=== PATIENT | female | born 1960 | race Caucasian/White ===

== ENCOUNTER 2020-06-28 10:58 | Emergency (ER) | payer MEDICAID ==
[~2020-06-28] VITALS: Ht 177.8 cm; Wt 118.0 kg
[2020-06-28] MEDS ORDERED: ONDANSETRON HCL 4MG/2ML INJ IV STA (11:20)
[2020-06-28] MEDS ORDERED: MAGNESIUM/ALUMINUM HYDROXIDE/SIMETHICONE 30ML UDC PO ONE (11:30)
[2020-06-28] MEDS ORDERED: FAMOTIDINE 20MG/2ML VIAL IV ONE (11:30)
[2020-06-28] MEDS ORDERED: DIATR MEGLU/DIATRIZOATE SOLN 30ML ONE (11:40)
[2020-06-28 11:52] LABS: BASOPHILS % 0.5 % (0.0-2.0); EOSINOPHILS % 1.7 % (0.0-5.0); HEMATOCRIT. 38.7 % (36.0-48.0); LYMPHOCYTES % 13.3 % (20.0-50.0); MEAN CORPUSCULAR HEMOGLOBIN 29.3 pg (28.0-32.0); MEAN CORPUSCULAR VOLUME 87.2 fL (81.0-99.0); MEAN PLATELET VOLUME 8.9 fl (7.4-10.4); NEUTROPHILS % 77.5 % (40.0-76.0); PLATELET 160 x1000/uL (130-400); RED BLOOD CELL COUNT 4.44 mill/uL (4.2-5.4); RED CELL DISTRIBUTION WIDTH 14.5 % (11.6-14.6)
[2020-06-28 11:58] LABS: CHLORIDE 109 mEq/L (98-107)
[2020-06-28 12:00] LABS: PROTHROMBIN TIME 10.5 sec (9.6-11.0)
[2020-06-28 13:10] LABS: CLARITY URINE CLEAR (CLEAR); COLOR URINE YELLOW (YELLOW); KETONES URINE NEGATIVE (NEGATIVE); LEUKOCYTE ESTERASE URINE 1+ (NEGATIVE); NITRITE URINE NEGATIVE (NEGATIVE); OCCULT BLOOD URINE NEGATIVE (NEGATIVE); PH URINE 7.5 (4.5-8.0); PROTEIN URINE NEGATIVE (NEGATIVE); SPECIFIC GRAVITY URINE 1.018 (1.005-1.030)
[2020-06-28] MEDS ORDERED: DIPHENHYDRAMINE 50MG/ML VIAL IV ONE (16:15)
[2020-06-28] MEDS ORDERED: METOCLOPRAMIDE HCL 10MG/2ML VIAL IV ONE (16:15)
[2020-06-28 17:25] VITALS: BP 138/84
== END 2020-06-28 18:15 | disposition home or self-care (01) ==
LOC: ER 10:58
DX: R07.89 Other chest pain (principal); R10.13 Epigastric pain; N39.0 Urinary tract infection, site not specified; Z98.84 Bariatric surgery status; Z95.0 Presence of cardiac pacemaker
CPT/HCPCS: 36415; 71045; 74177; 80053; 81003; 83690; 83880; 84484; 85025; 85610; 96374; 96375; 99285; J1200; J2405; J2765; J3490; Q9963

== ENCOUNTER 2021-03-29 16:30 | Emergency (ER) | payer MEDICAID ==
[~2021-03-29] VITALS: Ht 160 cm; Wt 118.0 kg
[~2021-03-29 16:30] MED LIST: CYM20 PO; ROPI3TAB PO
[2021-03-29] MEDS ORDERED: ACETAMINOPHEN WITH CODEINE 300/30MG TABLET PO ONE (17:00)
[2021-03-29] MEDS ORDERED: BACITRACIN ZINC OINT UDPKT TOP ONE (19:30)
[2021-03-29] MEDS ORDERED: LIDOCAINE HCL 1% 20ML VIAL (Pyxis) INJ INFIL ONE (20:00)
[2021-03-29] MEDS ORDERED: T3 PO (21:05)
[2021-03-29] MEDS ORDERED: CEPH500C2 MT (21:07)
[2021-03-29] MEDS ORDERED: HYDROCODONE/ACETAMINOPHEN 5/325MG TABLET PO ONE (21:15)
[2021-03-29 21:33] VITALS: BP 121/69
== END 2021-03-29 21:33 | disposition home or self-care (01) ==
LOC: ER 16:30
DX: S91.119A Laceration without foreign body of unspecified toe without damage to nail, initial encounter (principal); Z98.890 Other specified postprocedural states; W18.31XA Fall on same level due to stepping on an object, initial encounter; Y93.89 Activity, other specified; Y92.89 Other specified places as the place of occurrence of the external cause; Y99.8 Other external cause status
CPT/HCPCS: 12002; 73630; 99283; J3490; Z7610

== ENCOUNTER 2021-10-04 02:11 | Emergency (ER) | payer MEDICAID ==
[~2021-10-04] VITALS: Ht 162.6 cm; Wt 100.0 kg
[~2021-10-04 02:11] MED LIST changes: +CALC-978 PO; +CEPH500C2 MT; +DEXT15LI PO; +HC A30CR10 RC; +LANS30CA55 PO; +T3 PO; +[UNRECOGNIZED DRUG - CODE] PO
[2021-10-04] MEDS ORDERED: ASPIRIN 81MG TABLET PO ONE (03:00)
[2021-10-04 04:13] LABS: BASOPHILS % 0.5 % (0.0-2.0); EOSINOPHILS % 2.4 % (0.0-5.0); HEMATOCRIT. 40.7 % (36.0-48.0); HEMOGLOBIN. 13.5 g/dL (12.0-16.0); LYMPHOCYTES % 18.4 % (20.0-50.0); MEAN CORPUSCULAR HEMOGLOBIN 28.7 pg (28.0-32.0); MEAN CORPUSCULAR VOLUME 86.7 fL (81.0-99.0); MEAN PLATELET VOLUME 9.8 fl (7.4-10.4); MONOCYTES % 6.3 % (2.0-8.0); NEUTROPHILS % 72.4 % (40.0-76.0); PLATELET 166 x1000/uL (130-400); RED CELL DISTRIBUTION WIDTH 15.3 % (11.6-14.6)
[2021-10-04 04:47] LABS: CHLORIDE 111 mEq/L (98-107)
[2021-10-04 04:55] LABS: T4 FREE 1.38 ng/dL (0.76-1.46)
[2021-10-04 06:40] VITALS: BP 136/78
== END 2021-10-04 06:50 | disposition home or self-care (01) ==
LOC: ER 02:32
DX: R07.89 Other chest pain (principal); E78.00 Pure hypercholesterolemia, unspecified; Z79.899 Other long term (current) drug therapy; Z86.39 Personal history of other endocrine, nutritional and metabolic disease
CPT/HCPCS: 36415; 71045; 80053; 83880; 84439; 84443; 84484; 85025; 87077; 87086; 87186; 93005; 99285; Z7610